=== PATIENT | female | born 1955 | race African-American/Black ===

== ENCOUNTER 2020-02-10 12:32 | Inpatient (IN) | payer MEDICAID ==
[~2020-02-10] VITALS: Ht 167.6 cm; Wt 47.2 kg
[2020-02-10] MEDS ORDERED: METHYLPREDNISOLONE SOD SUCC 125 MG/2 ML VIAL IV STA (12:47)
[2020-02-10] MEDS ORDERED: IPRATROPIUM BROMIDE (0.02%) 0.5MG/2.5ML NEB HHN STA (12:47)
[2020-02-10] MEDS ORDERED: ALBUTEROL (0.083%) 2.5MG/3ML NEB HHN STA (12:47)
[2020-02-10 13:32] LABS: BASOPHILS % 0.6 % (0.0-2.0); EOSINOPHILS % 0.3 % (0.0-5.0); HEMATOCRIT. 52.1 % (36.0-48.0); HEMOGLOBIN. 17.4 g/dL (12.0-16.0); LYMPHOCYTES % 11.2 % (20.0-50.0); MEAN CORPUSCULAR HEMOGLOBIN 30.7 pg (28.0-32.0); MEAN CORPUSCULAR VOLUME 92.2 fL (81.0-99.0); MEAN PLATELET VOLUME 8.7 fl (7.4-10.4); MONOCYTES % 8.4 % (2.0-8.0); NEUTROPHILS % 79.5 % (40.0-76.0); PLATELET 310 x1000/uL (130-400); RED BLOOD CELL COUNT 5.66 mill/uL (4.2-5.4); RED CELL DISTRIBUTION WIDTH 14.9 % (11.6-14.6)
[2020-02-10 13:37] LABS: CHLORIDE 103 mEq/L (98-107)
[2020-02-10] MEDS ORDERED: AZITHROMYCIN 500 MG in DEXT 5% WATER 250 ML IV ONE (14:15)
[2020-02-10] MEDS ORDERED: CEFTRIAXONE 1 G PREMIX 50 ML IV ONE (14:15)
[2020-02-10] MEDS ORDERED: ONDANSETRON HCL 4MG/2ML INJ IV PRN (17:30)
[2020-02-10] MEDS ORDERED: ACETAMINOPHEN 325MG TABLET PO PRN (17:30)
[2020-02-10] MEDS ORDERED: METHYLPREDNISOLONE SOD SUCC 40 MG/ML VIAL IV SCH (17:30)
[2020-02-10] MEDS ORDERED: ENOXAPARIN 40MG/0.4ML SYR SUBCUT SCH (18:00)
[2020-02-10] MEDS ORDERED: FUROSEMIDE 20MG/2ML VIAL IVP NR (18:00)
[2020-02-10] MEDS: AMLODIPINE 10MG TABLET PO SCH (18:33)
[2020-02-11] VITALS: BP 126/78
[2020-02-11] MEDS: METHYLPREDNISOLONE SOD SUCC 40 MG/ML VIAL IV SCH ×4 (00:09→21:30)
[2020-02-11 08:00] VITALS: BP 145/85
[2020-02-11] MEDS: AMLODIPINE 10MG TABLET PO SCH (09:13)
[2020-02-11 12:00] VITALS: BP 104/57
[2020-02-11] MEDS: IPRATROPIUM/ALBUTEROL 0.5-3(2.5)MG/3ML NEB HHN SCH ×3 (12:00→21:32)
[2020-02-11 16:00] VITALS: BP 133/79
[2020-02-11] MEDS: FUROSEMIDE 20MG/2ML VIAL IVP SCH (16:32)
[2020-02-11] MEDS: ENOXAPARIN 30MG/0.3ML SYR SUBCUT SCH (16:32)
[2020-02-11 19:05] LABS: CLARITY URINE CLEAR (CLEAR); COLOR URINE YELLOW (YELLOW); KETONES URINE NEGATIVE (NEGATIVE); LEUKOCYTE ESTERASE URINE 1+ (NEGATIVE); NITRITE URINE NEGATIVE (NEGATIVE); OCCULT BLOOD URINE NEGATIVE (NEGATIVE); PH URINE 5.5 (4.5-8.0); PROTEIN URINE NEGATIVE (NEGATIVE); SPECIFIC GRAVITY URINE 1.009 (1.005-1.030); UROBILINOGEN URINE 0.2 E.U./dL (0.2-1.0)
[2020-02-11 19:16] LABS: *AMPHETAMINES SCREEN URINE NEGATIVE (NEGATIVE); *BARBITURATES SCREEN URINE NEGATIVE (NEGATIVE); *BENZODIAZEPINES SCREEN URINE NEGATIVE (NEGATIVE)
[2020-02-11 19:17] LABS: *COCAINE SCREEN URINE NEGATIVE (NEGATIVE); CANNABINOID URINE SCREEN NEGATIVE (NEGATIVE); METHADONE URINE SCREEN NEGATIVE (NEGATIVE); OPIATES URINE SCREEN NEGATIVE (NEGATIVE); PHENCYCLIDINE URINE SCREEN NEGATIVE (NEGATIVE)
[2020-02-11 20:00] VITALS: BP 127/81
[2020-02-11] MEDS: ZOLPIDEM TARTRATE 5MG TABLET PO PRN (22:31)
[2020-02-11 23:54] VITALS: BP 95/55
[2020-02-12] MEDS: IPRATROPIUM/ALBUTEROL 0.5-3(2.5)MG/3ML NEB HHN SCH ×6 (01:18→20:34)
[2020-02-12 04:00] VITALS: BP 121/83
[2020-02-12] MEDS: METHYLPREDNISOLONE SOD SUCC 40 MG/ML VIAL IV SCH ×3 (05:38→20:49)
[2020-02-12 08:00] VITALS: BP 133/64
[2020-02-12] MEDS: FUROSEMIDE 20MG/2ML VIAL IVP SCH (09:27)
[2020-02-12] MEDS: AMLODIPINE 10MG TABLET PO SCH (09:27)
[2020-02-12] MEDS ORDERED: LACTULOSE 20G/30ML UDC PO SCH (09:45)
[2020-02-12 12:00] VITALS: BP 133/75
[2020-02-12] MEDS: DOCUSATE SODIUM 250MG CAPSULE PO SCH (15:25)
[2020-02-12] MEDS ORDERED: SORBITOL 70% SOLN 30ML PO SCH (15:30)
[2020-02-12 16:00] VITALS: BP 131/76
[2020-02-12] MEDS: ENOXAPARIN 30MG/0.3ML SYR SUBCUT SCH (17:09)
[2020-02-12 20:00] VITALS: BP 142/81
[2020-02-13] VITALS: BP 135/66
[2020-02-13] MEDS: IPRATROPIUM/ALBUTEROL 0.5-3(2.5)MG/3ML NEB HHN SCH ×6 (00:24→20:13)
[2020-02-13 04:00] VITALS: BP 129/75
[2020-02-13] MEDS: METHYLPREDNISOLONE SOD SUCC 40 MG/ML VIAL IV SCH ×3 (05:37→22:23)
[2020-02-13 08:00] VITALS: BP 135/84
[2020-02-13] MEDS: DOCUSATE SODIUM 250MG CAPSULE PO SCH (08:39)
[2020-02-13] MEDS: AMLODIPINE 10MG TABLET PO SCH (08:39)
[2020-02-13 12:00] VITALS: BP 138/76
[2020-02-13 16:00] VITALS: BP 144/66
[2020-02-13] MEDS: ENOXAPARIN 30MG/0.3ML SYR SUBCUT SCH (17:52)
[2020-02-13] MEDS ORDERED: SORBITOL 70% SOLN 30ML PO SCH (19:00)
[2020-02-13 19:54] LABS: HEMATOCRIT. 46.9 % (36.0-48.0); HEMOGLOBIN. 15.1 g/dL (12.0-16.0); MEAN CORPUSCULAR HEMOGLOBIN 30.3 pg (28.0-32.0); MEAN CORPUSCULAR VOLUME 94.2 fL (81.0-99.0); MEAN PLATELET VOLUME 8.3 fl (7.4-10.4); PLATELET 271 x1000/uL (130-400); RED BLOOD CELL COUNT 4.98 mill/uL (4.2-5.4); RED CELL DISTRIBUTION WIDTH 14.9 % (11.6-14.6)
[2020-02-13 20:00] VITALS: BP 146/74
[2020-02-13 20:17] LABS: CHLORIDE 100 mEq/L (98-107)
[2020-02-13 20:47] LABS: PLATELET ESTIMATE NORMAL
[2020-02-13 20:51] LABS: HEPATITIS B SURFACE ANTIGEN NEGATIVE
[2020-02-13 21:21] LABS: HEPATITIS A AB IGM NEGATIVE (NEGATIVE)
[2020-02-14] VITALS: BP 155/86
[2020-02-14] MEDS: ZOLPIDEM TARTRATE 5MG TABLET PO PRN ×2 (00:07→23:28)
[2020-02-14] MEDS: IPRATROPIUM/ALBUTEROL 0.5-3(2.5)MG/3ML NEB HHN SCH ×7 (00:40→23:45)
[2020-02-14 04:00] VITALS: BP 161/90
[2020-02-14] MEDS: METHYLPREDNISOLONE SOD SUCC 40 MG/ML VIAL IV SCH ×3 (05:23→21:20)
[2020-02-14 08:00] VITALS: BP_SYST 104; BP_SYST 135; BP_DIAS 84; BP_DIAS 86
[2020-02-14] MEDS ORDERED: NA PHOS,M-B/NA PHOS,DI-BA ENEMA 118ML PR NR (08:15)
[2020-02-14] MEDS: DOCUSATE SODIUM 250MG CAPSULE PO SCH (09:07)
[2020-02-14] MEDS: AMLODIPINE 10MG TABLET PO SCH (09:08)
[2020-02-14] MEDS: HYDRALAZINE HCL 50MG TABLET PO SCH ×2 (11:08→21:21)
[2020-02-14 11:55] VITALS: BP 154/75
[2020-02-14 16:00] VITALS: BP 95/52
[2020-02-14] MEDS: ENOXAPARIN 30MG/0.3ML SYR SUBCUT SCH (17:44)
[2020-02-14 20:00] VITALS: BP 154/89
[2020-02-14] MEDS: GUAIFENESIN 600MG ER TABLET PO SCH (21:20)
[2020-02-15] VITALS (7 sets, daily range): BP systolic 133–162; BP diastolic 72–89
[2020-02-15] MEDS: IPRATROPIUM/ALBUTEROL 0.5-3(2.5)MG/3ML NEB HHN SCH ×3 (02:39→12:25)
[2020-02-15] MEDS: METHYLPREDNISOLONE SOD SUCC 40 MG/ML VIAL IV SCH ×2 (04:02→14:04)
[2020-02-15] MEDS ORDERED: AZITHROMYCIN 250 MG TABLET PO SCH (09:00)
[2020-02-15] MEDS: AMLODIPINE 10MG TABLET PO SCH (09:02)
[2020-02-15] MEDS: DOCUSATE SODIUM 250MG CAPSULE PO SCH (09:02)
[2020-02-15] MEDS: HYDRALAZINE HCL 50MG TABLET PO SCH (09:02)
[2020-02-15] MEDS: GUAIFENESIN 600MG ER TABLET PO SCH (09:02)
[2020-02-15] MEDS ORDERED: FAMOTIDINE 20MG TABLET PO SCH (10:45)
[2020-02-15] MEDS ORDERED: CEFTRIAXONE 1,000 MG in DEXTROSE 5% WATER 50 ML IV SCH (12:00)
[2020-02-15] MEDS ORDERED: PREDNISONE 20MG TABLET PO SCH (17:00)
[2020-02-15] MEDS: ENOXAPARIN 30MG/0.3ML SYR SUBCUT SCH (17:07)
[2020-02-15] MEDS ORDERED: HYDRALAZINE HCL 100MG TABLET PO SCH (21:00)
[2020-02-15] MEDS ORDERED: ACETYLCYSTEINE 100MG/ML 10% VIAL 4ML INH SCH (22:00)
== END 2020-02-15 20:00 | DRG 720 ==
LOC: ER 12:45 → EDBEDREQ 14:17 → EDBEDREQTM 14:17 → 5WST 15:54 → EDBEDREQ 15:57 → EDBEDREQTM 15:57 → ENRESERV 20:32
PROVIDERS: ADMIT Internal Medicine; ATTEND Internal Medicine
DX: A41.9 Sepsis, unspecified organism (principal); J96.20 Acute and chronic respiratory failure, unspecified whether with hypoxia or hypercapnia; J44.1 Chronic obstructive pulmonary disease with (acute) exacerbation; F17.210 Nicotine dependence, cigarettes, uncomplicated; D75.1 Secondary polycythemia; J44.0 Chronic obstructive pulmonary disease with (acute) lower respiratory infection; M19.90 Unspecified osteoarthritis, unspecified site; J18.9 Pneumonia, unspecified organism; R74.0 Nonspecific elevation of levels of transaminase and lactic acid dehydrogenase [LDH]; Z71.3 Dietary counseling and surveillance; Z91.14 Patient's other noncompliance with medication regimen; Z71.6 Tobacco abuse counseling; Z20.828 Contact with and (suspected) exposure to other viral communicable diseases; I11.0 Hypertensive heart disease with heart failure; I50.41 Acute combined systolic (congestive) and diastolic (congestive) heart failure
CPT/HCPCS: 36415; 71045; 80048; 80053; 80061; 80305; 81003; 83880; 84443; 84484; 85025; 86705; 86709; 86803; 87340; 87635; 93005; 93306; 94618; 94640; 97162; 99291; J0456; J0696; J1650; J1940; J2920; J2930; J7060; J7512